=== PATIENT | male | born 1950 | race Asian ===

== ENCOUNTER → 2019-01-13 | Outpatient (CLI) | payer MEDICARE, OTHER | END | disposition home or self-care (01) | LOC: RADPV 11:39 | PROVIDERS: ATTEND Legal Medicine | DX: R05 Cough (principal) ==

== ENCOUNTER → 2019-07-20 | Outpatient (CLI) | payer MEDICARE, OTHER | END | disposition home or self-care (01) | LOC: RADPV 15:06 | PROVIDERS: ATTEND Legal Medicine | DX: R60.0 Localized edema (principal) | CPT/HCPCS: 93971 ==

== ENCOUNTER → 2021-01-26 | Outpatient (CLI) | payer MEDICARE, OTHER ==
[~2021-01-26] MED LIST: GADOTERATE MEGLUMINE 10 MMOL/20 ML VIAL IVP ONE
== END | disposition home or self-care (01) ==
LOC: RADMN 10:38
PROVIDERS: ATTEND Legal Medicine
DX: I67.82 Cerebral ischemia (principal); G93.40 Encephalopathy, unspecified
CPT/HCPCS: 70553; A9575